=== PATIENT | male | born 1970 | race Caucasian/White ===

== ENCOUNTER 2020-12-22 15:13 | Emergency (ER) | payer BC, SELFPAY ==
[2020-12-22 15:46] VITALS: BP 134/88; PULSE 92; RESP 18; TEMP 36.8; O2SAT 99
--- NOTE | 2020-12-22 16:08 | ED.EYEPROB ---
HPI - Eye Problem General Chief complaint: Eye Problems Stated complaint: eye problems Source: patient and RN notes reviewed Limitations: no limitations History of Present Illness HPI Narrative: The patient a non-smoker/nondrinker does not wear contact lenses or glasses, presents with eye discomfort. 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 He now has a couple day history of sequential first right than left eye redness, scant congestion and photophobia. He comments he had his second Covid shot the day before the onset; symptoms are mild, somewhat worse with blinking. No injury, foreign body sensation, significant drainage, sneezing/wheezing, itching including palatal; no fever, loss of taste/smell, CP, cough, S OB, vomiting/diarrhea Related Data Home Medications Medication Instructions Recorded Confirmed atorvastatin 12/22/20 diclofenac sodium PO 12/22/20 famotidine 12/22/20 lisinopril 12/22/20 Allergies Allergy/AdvReac Type Severity Reaction Status Date / Time No Known Allergies Allergy Verified 12/22/20 16:13 Review of Systems Review of Systems: General/Constitutional: No weight loss,fever Eyes: REPORTS redness,discharge Ears/Nose/Throat: No: Epistaxis,ear discharge Respiratory: Denies: Hemoptysis Gastrointestinal: No Vomiting, Bleeding-rectal Skin: No Lumps, eruption Neurologic: No Focal Weakness,Sz Hematologic: Denies: Petechiae/Purpura Psychiatric: No: Suicida ideationl All Other Systems: Reviewed and Negative PMFSH Comments At time of signature, agree with nursing past medical, surgical, social and family history. There is no relevant family history pertinent to the presenting complaint Exam Narrative: General Appearance: Well appearing, Well nourished, No distress EYE: Va 20/20, PERRLA , Pxmg-pajavenu-oweyhj normal), EOMI , Lens normal), Normal corneas, anterior chamber deep), Conjunctiva injection R>L Ears: External ear normal, Auditory canal normal Nose: Normal nose, Nares clear Mouth/Throat: Normal appearing, Normal lips Neck: Supple, No adenopathy Respiratory: Airway patent, No respiratory distress Skin: Warm, Dry Neurological: A&O x3, , Normal affect Course Vital Signs Vital signs: Vital Signs Temperature 98.3 F 12/22/20 15:46 Pulse Rate 92 12/22/20 15:46 Respiratory Rate 18 12/22/20 15:46 Blood Pressure 134/88 12/22/20 15:46 Pulse Oximetry 99 12/22/20 15:46 Temperature 98.3 F 12/22/20 15:46 Pulse Rate 92 12/22/20 15:46 Respiratory Rate 18 12/22/20 15:46 Blood Pressure 134/88 12/22/20 15:46 Pulse Oximetry 99 12/22/20 15:46 Discharge Plan Discharge Clinical Impression: Conjunctivitis Qualifiers: Conjunctivitis type: unspecified Laterality: bilateral Qualified Code(s): H10.9 - Unspecified conjunctivitis Patient Disposition: Home, Self-Care Condition: Stable Instructions: Conjunctivitis (ED) Prescriptions: New sulfacetamide sodium [Bleph-10] 10 % drops 2 drp EACH EYE Q4H Qty: 5 RF: 0 azithromycin 250 mg tablet See Rx Instructions .ROUTE .COMPLEX Qty: 6 RF: 0 olopatadine [Pataday Twice Daily Relief] 0.1 % drops 1 drp EACH EYE BID Qty: 5 RF: 0 No Action atorvastatin 20 mg tablet RF: 0 famotidine 40 mg tablet RF: 0 diclofenac sodium 75 mg tablet,delayed release (DR/EC) PO RF: 0 lisinopril 40 mg tablet RF: 0 Other Ambulatory Orders: SARS-CoV-2 RNA, Qual RT-PCR (Routine) Location: Determined by Patient Ordered By: Evan Barnes Follow-up/Referrals: Divya,Uzma Link NP [Primary Care Provider] - Stand Alone Forms: Work/School Release IP
== END 2020-12-22 17:12 | disposition home or self-care (01) ==
PROVIDERS: Emergency Provider Emergency Medicine; PCP Nurse Practitioner Family
DX: H10.9 Unspecified conjunctivitis (principal); Z20.822 Contact with and (suspected) exposure to COVID-19; E78.00 Pure hypercholesterolemia, unspecified; I10 Essential (primary) hypertension; K21.9 Gastro-esophageal reflux disease without esophagitis
CPT/HCPCS: 87426; 99213; C9803; G0463

== ENCOUNTER → 2020-12-23 09:39 | Outpatient (CLI) | payer BC, SELFPAY ==
[2020-12-23 21:09] LABS: SARS-CoV-2 RNA PCR Negative
== END ==
PROVIDERS: PCP Nurse Practitioner Family; Visit Provider Emergency Medicine
DX: H10.9 Unspecified conjunctivitis (principal)
CPT/HCPCS: C9803; U0003; U0005

== ENCOUNTER 2021-05-21 21:27 | Emergency (ER) | payer BC, SELFPAY ==
--- NOTE | ~2021-05-21 | XR_ITS ---
XR hand LT min 3V DATE: 05/21/2021 21:55 INDICATION: Deformity of third digit TECHNIQUE: 3 views COMPARISON: None FINDINGS: There is approximately 50% ulnar dislocation at the third proximal interphalangeal joint wi th associated fracture of the base of the middle phalanx. Multiple osteochondromas are noted including distal ulna, proximal phalanx of third digit. IMPRESSION: Fracture/dislocation at the proximal interphalangeal joint of the third digit Multiple osteochondromas Reviewed, dictated and finalized at location J. STANT ART DIRECTOR IMPRESSION: Fracture/dislocation at the proximal interphalangeal joint of the t hird digit Multiple osteochondromas
--- NOTE | ~2021-05-21 | XR_ITS ---
XR finger 3rd LT min 2V DATE: 05/21/2021 22:58 INDICATION: Post-reduction examination TECHNIQUE: 2 views COMPARISON: 05/21/2021 left hand FINDINGS: There is reduction of the dislocation of the proximal interphalangeal joint. There is a mil dly anteriorly displaced fracture of the anterior base of the middle phalanx. Osteochondroma of the proximal phalanx of the third digit IMPRESSION: Reduction of dislocation at proximal interphalangeal joint; anteriorly displaced anterior intra-articular fragment of the middle phalanx Reviewed, dictated and finalized at location J. GE CAPTAIN IMPRESSION: Reduction of dislocation at proximal interphalangeal joint; anterio rly displaced anterior intra-articular fragment of the middle phalanx
[2021-05-21 21:36] VITALS: BP 169/121; PULSE 114; RESP 18; TEMP 36.4; O2SAT 100
--- NOTE | 2021-05-21 22:43 | ED.GENADULT ---
HPI - General Adult General Chief complaint: Extremity Injury, Upper Stated complaint: finger injury Time Seen by Provider: 05/21/21 22:37 History of Present Illness HPI narrative: Patient 50-year-old gentleman who presents the emergency department with chief complaint of left third digit dislocation. The patient reports he fell landing on his rear end and caught his finger against an object. The patient denies laceration reports that the finger is deformed at the PIP joint patient denies loss of consciousness denies neck pain reports he has little bit of pain in his tailbone but no other pain Related Data Home Medications Medication Instructions Recorded Confirmed atorvastatin 12/22/20 diclofenac sodium PO 12/22/20 famotidine 12/22/20 lisinopril 12/22/20 Allergies Allergy/AdvReac Type Severity Reaction Status Date / Time No Known Allergies Allergy Verified 05/21/21 21:36 Review of Systems Review of Systems: A 10 system review of systems was completed on the patient and is negative except for what is stated in the HPI. Nursing and ancillary documentation was reviewed. Exam Narrative: GENERAL: Well-appearing, well-nourished, and in no acute distress. HEAD: Normocephalic, atraumatic. EYES: PERRLA and EOMI. ENT: Nares clear, no rhinorrhea or epistaxis. Mucous membranes moist. NECK: Supple. CHEST: Clear to auscultation. No respiratory distress. HEART: Regular rate and rhythm. No murmur heard. Normal peripheral pulses. ABDOMEN: Soft, nontender, nondistended, normal active bowel sounds. EXTREMITIES: Normal range of motion. No edema. There is an obvious deformity of the left third digit at the PIP joint with the finger dislocated to the ulnar side. SKIN: Warm, dry, no rash. NEURO: No focal deficits. Alert and oriented x3. PSYCH: Normal mood and affect. Course Course Emergency Course: Finger was reduced easily with gentle traction. A finger splint will be placed and patient will be referred to orthopedics Vital Signs Vital signs: Vital Signs Temperature 36.4 C 05/21/21 21:36 Pulse Rate 114 H 05/21/21 21:36 Respiratory Rate 18 05/21/21 21:36 Blood Pressure 169/121 H 05/21/21 21:36 Pulse Oximetry 100 05/21/21 21:36 Temperature 36.4 C 05/21/21 21:36 Pulse Rate 114 H 05/21/21 21:36 Respiratory Rate 18 05/21/21 21:36 Blood Pressure 169/121 H 05/21/21 21:36 Pulse Oximetry 100 05/21/21 21:36 Procedures Orthopedic Joint Reduction Joint #1: Orthopedic Joint Reduction Date: 05/21/21 Orthopedic Joint Reduction Time: 22:44 Time Out Performed: Yes Side: left Joint Reduction Location: finger Analgesia: none Pre-Procedure Neuro Vascular Exam: normal Technique used: direct manipulation Post-reduction neuro exam: intact Post-reduction vascular: intact Post Reduction X-Ray Obtained: Yes Post Reduction X-Ray Results: reduced Splint Applied: Yes Patient Tolerated Procedure: well and no complications Medical Decision Making Vital Signs Vital Signs: Vital Signs Temperature 36.4 C 05/21/21 21:36 Pulse Rate 114 H 05/21/21 21:36 Respiratory Rate 18 05/21/21 21:36 Blood Pressure 169/121 H 05/21/21 21:36 Pulse Oximetry 100 05/21/21 21:36 Temperature 36.4 C 05/21/21 21:36 Pulse Rate 114 H 05/21/21 21:36 Respiratory Rate 18 05/21/21 21:36 Blood Pressure 169/121 H 05/21/21 21:36 Pulse Oximetry 100 05/21/21 21:36 Discharge Plan Discharge Clinical Impression: Dislocation of finger PIP joint, Fracture of phalanx of digit of hand Patient Disposition: Home, Self-Care Condition: Stable Instructions: Antibiotic Form, Finger Fracture (ED), Closed Reduction (ED), Finger Dislocation (ED) Prescriptions: New hydrocodone-acetaminophen 5-325 mg tablet 1 tablet PO Q6H PRN (Reason: pain) 3 Days Qty: 12 RF: 0 No Action atorvastatin 20 mg tablet RF
[2021-05-21] MEDS: HYDROcodone/acetaminophen (*CRX) 5-325 MG TABLET 1 TAB PO (22:53)
--- NOTE | 2021-05-21 23:12 | PC.NURSE ---
Assumed care of pt at this time.
== END 2021-05-21 23:47 | disposition home or self-care (01) ==
LOC: ANHED 23:20
PROVIDERS: Emergency Provider Emergency Medicine; PCP Nurse Practitioner Family
DX: S62.613A Displaced fracture of proximal phalanx of left middle finger, initial encounter for closed fracture (principal); D16.12 Benign neoplasm of short bones of left upper limb; W01.10XA Fall on same level from slipping, tripping and stumbling with subsequent striking against unspecified object, initial encounter
CPT/HCPCS: 26770; 29130; 73130; 73140; 99284; 99285; A9270

== ENCOUNTER 2021-09-01 10:30 | Outpatient (RCR) | payer BC, SELFPAY ==
--- NOTE | 2021-06-24 08:12 | OTOPEVAL ---
OCCUPATIONAL THERAPY EVALUATION REPORT 06/24/21 Thank you for referring Fran Mcintosh to [facility].? The patient is scheduled to be seen for therapy? 1x/week for 4 weeks. Please review, sign, date and return this plan of care JUAN ANTONIO. I agree with and certify that the following plan of care is medically necessary. Referring Physician Date Referring Provider: Corby Damon MD *OT Outpatient Evaluation Start: 06/24/21 07:32 Outpatient Past Medical History Past Medical History Source of Past Medical History Recalled from Previous Visit, Confirmed with Patient/Family Cardiovascular History Hx Hypercholesterolemia Yes Hx Hypertension Yes Gastrointestinal History Hx Gastroesophageal Reflux Disease Yes Musculoskeletal History Hx Orthopedic Surgery Yes: Bone spurs removed in right arm and rt leg in childhood Evaluation Information Problem Diagnosis s/p dislocation of left D3 PIP Onset 05/21/21 Additional Evaluation Detail s/p closed reduction, Alumafoam splinting, and nohemy taping Subjective Information Patient presents today with Query Text:As Reported By Patient/ nothing on his finger. He is Family s/p immobilization and is ready for ROM. 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 Functional limitations include - gripping with the left hand and he is unable to type. He is able to dress and bathe himself without difficulty. does household tasks. Prior Level of Function Activity Level (Last 3 Months) Hand Dominance Right Activity of Daily Living Ability Independent Driving Yes Pain Assessment Timing of Pain Assessment Timing of Pain Assessment Assessment Pain Scale Pain Scale Used Numeric (1 - 10) Self Report Pain Assessment Left Finger, Middle Reported Pain Level 1 Pain Description Aching,Dull Lowest Pain Intensity 0 Greatest Pain Intensity 5 Pain Score Pain Score 1: Self Report Additional Pain Score Comments Increases to 5/10 when bumping the finger on objects. Interventions Used Interventions Used By Clinicians Education,Exercise Upper Extremity Range of Motion Wrist Range of Motion Left Reason Not Measured WNL/Left Finger Range of Motion Left Middle Finger MCP Joint Flexion - Active 80 Middle Finger MCP Joint Extension - 0 Active
--- NOTE | 2021-07-22 08:12 | OTOPEVAL ---
OCCUPATIONAL THERAPY RE-EVALUATION REPORT 07/22/21 Patient presents for OT re-evaluation 9 weeks after dislocating his left middle finger PIP joint. He has attended 4 sessions focusing on regaining ROM and strength of the left middle finger/hand. Patient has made great progress with therapy, but continues to have residual stiffness and weakness restricting his return of a full fist and hook fist. He is currently independent with all materials. We discussed continued weekly sessions vs. having the patient work on his HEP independently and return for a final follow up in 2 weeks to assess for discharge. We will be going with the latter - patient to return in 2 weeks for a final re-evaluation with the goal of being issued the next resistive putty and being discharged. Thank you for referring Fran Mcintosh to [facility] [place].? The patient is scheduled to be seen for therapy? 0-1x/week for 2 weeks. Please review, sign, date and return this plan of care JUAN ANTONIO. I agree with and certify that the following plan of care is medically necessary. Referring Physician Date Referring Provider: Corby Damon MD *OT Outpatient Re-Evaluation Diagnosis s/p dislocation of left D3 PIP Onset 05/21/21 Additional Evaluation Detail s/p closed reduction, alumafoam splinting, and nohemy taping Therapy began on 06/24/21. He has been compliant with his HEP. HEP includes active/ passive ROM and strengthening with putty. Emphasis on regaining hook fist as he has evident intrinsic tightness limiting simultaneous PIP and DIP flexion. Subjective Information Patient reports his hand is Query Text:As Reported By Patient/ progressing really well . He Family states his hand is 80% normal. He reports that gripping and typing are going well. He reports no functional limitations. Pain Assessment Timing of Pain Assessment Timing of Pain Assessment Assessment Pain Scale Pain Scale Used Numeric (1 - 10) Self Report Pain Assessment Left Finger, Middle Reported Pain Level 0 Lowest Pain Intensity 0 Greatest Pain Intensity 5 Pain Aggravating Factors Exercise/Activity Pain Score Pain Score 0: Self Report Upper Extremity Range of Motion Finger Range of Motion Left Middle Finger MCP Joint Flexion - Active 90 Middle Finger MCP Joint Extension - 0 Active Middle Finger PIP Joint Flexion - Active 75 Middle Finger PIP Joint Extension - -5 Active Middle Finger PIP Joint Extension - 0 Passive Middle Fing
--- NOTE | 2021-08-05 11:26 | OTOPEVAL ---
OCCUPATIONAL THERAPY RE-EVALUATION REPORT 08/05/21 Patient presents today for re-assessment after completing his HEP independency x2 weeks with the goal of a final re-evaluation today to discharge. Unfortunately the patient reports he has not been as compliant with his HEP as he'd like to be, and he actually has regressed in the ROM of the left middle finger PIP joint. He does demonstrate improvement with gross actuary clerk strength, however. Discussed at length the importance of regular HEP compliance to regain more functional ROM of the left middle finger. He reports that having another therapy follow up will hold him more accountable. Plan to continue to see the patient every other week x4 weeks. Will send a final discharge summary in 4 weeks. Thank you for referring Fran Mcintosh to [facility].? The patient is scheduled to be seen for therapy? 0-1x/week for 4 weeks. Please review, sign, date and return this plan of care JUAN ANTONIO. I agree with and certify that the following plan of care is medically necessary. Referring Physician Date Referring Provider: Corby Damon MD Evaluation Information Diagnosis s/p dislocation of left D3 PIP Onset 05/21/21 Additional Evaluation Detail s/p closed reduction, alumafoam splinting, and nohemy taping Therapy began on 06/24/21. He has been compliant with his HEP. HEP includes active/ passive ROM and strengthening with putty. Emphasis on regaining hook fist as he has evident intrinsic tightness limiting simultaneous PIP and DIP flexion. Subjective Information Patient reports his hand is Query Text:As Reported By Patient/ 85% normal . He states he has Family been using his hand without difficulty, but admits that he frequently avoids using his middle finger with gross gripping tasks. He reports that he got a paraffin machine at home, but has not been as compliant with his HEP as he'd like to be. Pain Assessment Timing of Pain Assessment Timing of Pain Assessment Assessment Pain Scale Pain Scale Used Numeric (1 - 10) Self Report Pain Assessment Left Finger, Middle Reported Pain Level 0 Lowest Pain Intensity 0 Greatest Pain Intensity 3 Pain Aggravating Factors Exercise/Activity Pain Score Pain Score 0: Self Report Upper Extremity Range of Motion Finger Range of Motion Left Middle Finger MCP Joint Flexion - Active 90 Middle Finger MCP Joint Extension - 0 Active Middle Finger
--- NOTE | 2021-09-01 11:24 | OTOPEVAL ---
OCCUPATIONAL THERAPY RE-EVALUATION REPORT 09/01/21 Patient presents today for OT re-evaluation of the left middle finger. We are just shy of 15 weeks following lateral dislocation of the middle finger. The past month the patient has made improvements with active/passive ROM and functional strength which have translated into improved hand use for work and ADL tasks. He continues to have residual stiffness, particularly with obtaining a hook fist as he has residual intrinsic tightness restricting PIP and DIP simultaneous flexion. Overall he is progressing and is demonstrating good potential to continue to increase functional ROM and strength. Continued skilled OT indicated for use of modalities, manual tx, and progression of HEP to facilitate optimal functional use of the left hand. Thank you for referring Fran Mcintosh to [facility].? The patient is scheduled to be seen for therapy? 1x/week for 4 weeks. Please review, sign, date and return this plan of care JUAN ANTONIO. I agree with and certify that the following plan of care is medically necessary. Referring Physician Date Referring Provider: Corby Damon MD *OT Outpatient Re-Evaluation Start: 06/24/21 07:32 Diagnosis s/p dislocation of left D3 PIP Onset 05/21/21 Additional Evaluation Detail s/p closed reduction, alumafoam splinting, and nohemy taping Therapy began on 06/24/21. He has been compliant with his HEP. HEP includes active/ passive ROM and strengthening with putty. Emphasis on regaining hook fist as he has evident intrinsic tightness limiting simultaneous PIP and DIP flexion. Subjective Information Patient reports that he is Query Text:As Reported By Patient/ able to use his hand for Family gripping tasks again. Continues to report residual stiffness that limits his complete warp tension tester with the middle finger, however. States he is unable to play the guitar due to stiffness. Pain Assessment Timing of Pain Assessment Timing of Pain Assessment Assessment Self Report Self Report Pain Level 0 Pain Score Pain Score 0: Self Report Upper Extremity Range of Motion Finger Range of Motion Left Middle Finger MCP Joint Flexion - Active 95 Middle Finger MCP Joint Extension - 0 Active Middle Finger PIP Joint Flexion - Active 75 Middle Finger PIP Joint Flexion - 85 Passive Middle Finger PIP Joint Extension - -10 Active Middle Finger PIP Joint Extension - -5 Passive Middle Finger
--- NOTE | 2021-09-11 11:28 | PCOTNOTE ---
This treatment is being continued on visit number [id number]. Please see documentation on both accounts to view progress. Completed interventions, outcomes, and problems have been marked as Inactive to facilitate the copying of the Care plan routine for recurring accounts.
== END 2021-09-10 12:42 | disposition home or self-care (01) ==
LOC: ANHOT 10:30
PROVIDERS: PCP Nurse Practitioner Family; Visit Provider Plastic Surgery
DX: S63.22 Subluxation of unspecified interphalangeal joint of finger (principal)
CPT/HCPCS: 97018; 97110; 97140; 97165

== ENCOUNTER 2021-09-29 08:30 | Outpatient (RCR) | payer BC, SELFPAY ==
--- NOTE | 2021-09-11 11:29 | PCOTNOTE ---
The treatment documented on this account is a continuation of the treatment documented on visit number [id number]. Please see documentation on both accounts to view progress. The Plan of Care has been transitioned and updated within the new V#. I have addressed and agree with the discipline specific Problems, Interventions, and Goals for the current certification period. Completed interventions, outcomes, and problems have been marked as Inactive to facilitate the copying of the Care plan routine for recurring accounts.
--- NOTE | 2021-09-11 11:33 | PCOTNOTE ---
Patient called & cancelled scheduled appointment this date due to having another appointment.
--- NOTE | 2021-09-29 09:01 | OTOPEVAL ---
OCCUPATIONAL THERAPY RE-EVALUATION AND DISCHARGE SUMMARY 09/29/21 Patient presents today for OT re-evaluation of the left middle finger. In the past month there have been slight changes in functional ROM - he has now achieved a full functional fist. Since the start of care, however, there have been marked improvements with reduced pain, improved ROM, and return of director stars strength, which has allowed him to return to using the left hand for ADL and work tasks without difficulty. He continues to have residual intrinsic tightness with a hook fist, but he is currently independent with a home program for this. No further skilled OT indicated at this time. Thank you for referring Fran Mcintosh to [facility]. Please review, sign, date and return this plan of care JUAN ANTONIO. I agree with and certify that the following plan of care is medically necessary. Referring Physician Date Referring Provider: Corby Damon MD Re-Evaluation Information Diagnosis s/p dislocation of left D3 PIP Onset 05/21/21 Additional Evaluation Detail s/p closed reduction, alumafoam splinting, and nohemy taping Therapy began on 06/24/21. He has been compliant with his HEP. HEP includes active/ passive ROM and strengthening with putty. Emphasis on regaining hook fist as he has evident intrinsic tightness limiting simultaneous PIP and DIP flexion. Subjective Information Patient reports that he has Query Text:As Reported By Patient/ been using his left hand as Family much as possible. He reports increased ROM and use with the hand, particularly with gross gripping. Pain Assessment Timing of Pain Assessment Timing of Pain Assessment Re-assessment Self Report Self Report Pain Level 0 Pain Score Pain Score 0: Self Report Upper Extremity Range of Motion Finger Range of Motion Left Middle Finger MCP Joint Flexion - Active 95 Middle Finger PIP Joint Flexion - Active 80 Middle Finger DIP Joint Flexion - Active 60 Finger Range of Motion Comments Since 09/01/21: Tip to palm improved from 1cm gap to 0cm gap. Hook fist (tip to distal palmar crease) remained at 3.5 cm gap. Since his initial evaluation on 2/16/22: PIP flexion improved from 50* DIP flexion improved from 30* Tip to palm had a 4 cm gap. Hand Livestock Rancher/Pinch Strength Assessment Hand Right
== END 2021-09-29 16:11 | disposition home or self-care (01) ==
LOC: ANHOT 08:30
PROVIDERS: PCP Nurse Practitioner Family; Visit Provider Plastic Surgery
DX: S63.22 Subluxation of unspecified interphalangeal joint of finger (principal)
CPT/HCPCS: 97018; 97110

== ENCOUNTER → 2021-09-30 13:27 | Outpatient (CLI) | payer BC, SELFPAY ==
--- NOTE | ~2021-09-30 | XR_ITS ---
EXAMINATION: XR finger 3rd LT min 2V DATE: 09/30/2021 13:57 INDICATION: Swelling and stiffness at the left third digit post fracture dislocation TECHNIQUE: Dorsal palmar, lateral and 2 oblique views of the left third digit were obtained COMPARISON: 05/21/2021 FINDINGS: Persistent small ununited fracture fragment along the radial aspect of the base of the third middle p halanx. Alignment remains otherwise normal. No new fractures identified. Mild polyarticular osteoarth ritis at each of the profiled interphalangeal joints. Chronic osseous excrescences with cortical and medullary continuity palmar and ulnar aspects of the third proximal phalanx most likely osteochondrom as with additional osteochondromas evident at the distal left radius and ulna on the prior hand radio graphs consistent with osteochondromatosis/multiple hereditary exostoses. Soft tissue swelling about the third proximal interphalangeal joint. IMPRESSION: 1. Persistent ununited small likely avulsion fracture at the ulnar base of the third proximal phalanx . No acute osseous abnormality. 2. 3 osteochondromas along the left third proximal phalanx consistent with osteochondromatosis/multip le hereditary exostoses. Reviewed, dictated and finalized at location B. IMPRESSION: 1. Persistent ununited small likely avulsion fracture at the ulnar base of the third proximal phalanx. No acute osseous abnormality. 2. 3 osteochondromas along the left third proximal phalanx consistent with oste ochondromatosis/multiple hereditary exostoses.
== END ==
PROVIDERS: PCP Nurse Practitioner Family; Visit Provider Plastic Surgery
DX: S63.283D Dislocation of proximal interphalangeal joint of left middle finger, subsequent encounter (principal); D16.12 Benign neoplasm of short bones of left upper limb; M79.89 Other specified soft tissue disorders
CPT/HCPCS: 73140